=== PATIENT | female | born 1990 | race Two or more races ===

== ENCOUNTER 2023-10-01 21:05 | Emergency (ER) | payer MEDICARE ==
[~2023-10-01] VITALS: Ht 167.6 cm; Wt 225.0 kg
[2023-10-01 21:10] VITALS: TEMP 98.5
[2023-10-01] MEDS: normal saline 1000ML IV soln IVB ONE (23:05)
[2023-10-01] MEDS: proCHLORperazine 10 MG/2 ml inj IV PRN (23:05)
[2023-10-01 23:20] VITALS: BP 113/69; PULSE 118; RESP 20; O2SAT 99
== END 2023-10-01 23:52 | disposition home or self-care (01) ==
LOC: ER 21:06
DX: G40.802 Other epilepsy, not intractable, without status epilepticus (principal); R11.2 Nausea with vomiting, unspecified
CPT/HCPCS: 82948; 96361; 96374; 99285; J0780; J7030

== ENCOUNTER 2024-04-06 11:39 | Emergency (ER) | payer MEDICARE, MEDICAID ==
[~2024-04-06] VITALS: Ht 167.6 cm; Wt 110.0 kg
[~2024-04-06 11:39] MED LIST: ALBU18HF2 PO; BLOO1EAC70 MC; CLON0.1T2 PO; INSU100I61 SUBCUT; LANC-854 TOP; LANTUS SQ; LORA10TA7 PO; METO-292 PO; ONDA-103 PO; ONDA-104 PO; ONDA-243 PO; PANT20TA18 PO; PROC-8 PO; SUCR1TAB PO
[2024-04-06 12:50] LABS: BILIRUBIN,URINE NEGATIVE (Neg); CLARITY,URINE CLEAR (Clear); COLOR,URINE YELLOW (Yellow); GLUCOSE, URINE >=1000 mg/dl (Neg); KETONES,URINE NEGATIVE (Neg); LEUKOCYTE ESTERASE ,URINE NEGATIVE (Neg); NITRITES, URINE NEGATIVE (Neg); OCCULT BLOOD,URINE NEGATIVE (Neg); PH,URINE 5.5 (4.8-8.0); PROTEIN,URINE NEGATIVE (Neg); UROBILINOGEN,URINE 0.2 E.U/dL (0.2-1.0)
[2024-04-06 12:56] LABS: UA COLLECTION TYPE CLN CATCH MIDSTREAM
[2024-04-06 12:58] LABS: BACTERIA,URINE NONE SEEN /HPF (Neg); MUCUS STRANDS MODERATE /LPF (Neg); RBC,URINE NONE SEEN /HPF (0-2); SQUAMOUS EPITHELIAL CELL,UR FEW /LPF (FEW); WBC,URINE 0-4 /HPF (0-4)
[2024-04-06 13:03] LABS: URINE HCG NEGATIVE (NEG)
[2024-04-06] MEDS: ondansetron 4mg rapidly disintigrating tab PO ONE (13:30)
[2024-04-06] MEDS: ketorolac trometh 30MG/ML vial 30 MG/ML VIAL IM ONE (13:30)
[2024-04-06 14:32] LABS: EOSINOPHILS # (AUTO) 0.1 X10'3 (0-0.9); HEMATOCRIT 46.2 % (35.0-45.0); HEMOGLOBIN 15.4 g/dl (12.0-16.0); MEAN CORPUSCULAR HEMOGLOBIN 32.8 PG (27.0-31.0); MEAN CORPUSCULAR VOLUME 98.4 FL (78-98); MONOCYTES # (AUTO) 0.4 X10'3 (0-0.9); RED BLOOD COUNT 4.69 X10'6 (4.20-5.60)
[2024-04-06 14:34] LABS: BASOPHILS % (AUTO) 0.4 % (0-1); EOSINOPHILS % (AUTO) 1.4 % (0-6); LYMPHOCYTES # (AUTO) 1.8 X10'3 (1.1-4.8); LYMPHOCYTES % (AUTO) 25.9 % (21-51); MEAN CORPUSCULAR HGB CONC 33.4 g/dL (33.0-36.5); MEAN PLATELET VOLUME 11.4 FL (7.4-10.4); MONOCYTES % (AUTO) 5.7 % (2-12); NEUTROPHILS # (AUTO) 4.6 X10'3 (1.8-7.7); NEUTROPHILS % (AUTO) 66.6 % (42-75); PLATELET COUNT 165 X10'3 (140-440); RED CELL DISTRIBUTION WIDTH 15.4 % (11.5-14.5)
[2024-04-06 14:49] LABS: ALANINE AMINOTRANSFERASE 18 U/L (12-78); ALBUMIN 3.8 G/DL (3.4-5.0); ALBUMIN/GLOBULIN RATIO 0.9 (1.1-1.5); ALKALINE PHOSPHATASE 108 IU/L (46-116); ANION GAP 10 (8-16); ASPARTATE AMINO TRANSFERASE 16 U/L (10-37); BILIRUBIN,TOTAL 0.5 MG/DL (0.1-1.0); BLOOD UREA NITROGEN 19 MG/DL (7-18); BUN/CREATININE RATIO 29.7 (10.0-20.0); CALCIUM 9.3 MG/DL (8.5-10.1); CHLORIDE 103 MMOL/L (99-107); CREATININE 0.64 MG/DL (0.40-0.90); GLUCOSE 290 MG/DL (70-104); LIPASE 32 U/L (16-77); POTASSIUM 3.7 MMOL/L (3.5-5.1); SODIUM 135 MMOL/L (135-145); TOTAL CARBON DIOXIDE 21.9 MMOL/L (24-32); TOTAL PROTEIN 7.9 G/DL (6.4-8.2); eCRCL 117 ML/MIN; eGFR > 90 ML/MIN
[2024-04-06 15:03] LABS: PLATELET ESTIMATE NORMAL
[2024-04-06 15:04] LABS: LARGE PLATELETS FEW
[2024-04-06 15:58] LABS: SYPHILIS SCREENING TEST POC NEGATIVE (Negative)
[2024-04-06 16:03] VITALS: BP 147/96; PULSE 91; RESP 17; TEMP 98; O2SAT 99
[2024-04-09 06:22] LABS: CHLAMYDIA TRACHOMATIS, NAA Negative (Negative)
== END 2024-04-06 16:04 | disposition home or self-care (01) ==
LOC: ER 11:40
DX: R10.2 Pelvic and perineal pain (principal); E11.43 Type 2 diabetes mellitus with diabetic autonomic (poly)neuropathy; Z88.0 Allergy status to penicillin; Z91.040 Latex allergy status; Z79.4 Long term (current) use of insulin; Z79.899 Other long term (current) drug therapy
CPT/HCPCS: 36415; 76856; 80053; 81001; 81025; 83690; 85008; 85025; 87491; 87591; 93976; 96372; 99285; J1885; J7030

== ENCOUNTER 2024-04-23 02:28 | Emergency (ER) | payer MEDICARE, MEDICAID ==
[~2024-04-23] VITALS: Ht 167.6 cm; Wt 110.5 kg
[2024-04-23 03:11] LABS: BASOPHILS % (AUTO) 0.2 % (0-1); EOSINOPHILS % (AUTO) 0.1 % (0-6); HEMATOCRIT 41.6 % (35.0-45.0); HEMOGLOBIN 13.8 g/dl (12.0-16.0); MEAN CORPUSCULAR HEMOGLOBIN 32.5 PG (27.0-31.0); MEAN CORPUSCULAR HGB CONC 33.2 g/dL (33.0-36.5); MEAN CORPUSCULAR VOLUME 97.9 FL (78-98); MONOCYTES # (AUTO) 0.2 X10'3 (0-0.9); MONOCYTES % (AUTO) 1.9 % (2-12); NEUTROPHILS # (AUTO) 8.8 X10'3 (1.8-7.7); NEUTROPHILS % (AUTO) 87.8 % (42-75); PLATELET COUNT 161 X10'3 (140-440); RED BLOOD COUNT 4.25 X10'6 (4.20-5.60); RED CELL DISTRIBUTION WIDTH 14.5 % (11.5-14.5)
[2024-04-23 03:24] LABS: ALANINE AMINOTRANSFERASE 17 U/L (12-78); ALBUMIN 3.7 G/DL (3.4-5.0); ALKALINE PHOSPHATASE 91 IU/L (46-116); ANION GAP 15 (8-16); ASPARTATE AMINO TRANSFERASE 10 U/L (10-37); BILIRUBIN,DIRECT 0.2 MG/DL (0-0.3); BILIRUBIN,TOTAL 0.4 MG/DL (0.1-1.0); BLOOD UREA NITROGEN 13 MG/DL (7-18); CALCIUM 7.8 MG/DL (8.5-10.1); CHLORIDE 106 MMOL/L (99-107); CREATININE 0.42 MG/DL (0.40-0.90); ETHANOL < 10 MG/DL (<10); GLUCOSE 365 MG/DL (70-104); POTASSIUM 3.2 MMOL/L (3.5-5.1); SODIUM 139 MMOL/L (135-145); TOTAL CARBON DIOXIDE 18.4 MMOL/L (24-32); TOTAL PROTEIN 7.4 G/DL (6.4-8.2); eCRCL 178 ML/MIN; eGFR > 90 ML/MIN
[2024-04-23] MEDS: metoclopramide 5 mg/ml inj IV ONE (03:29)
[2024-04-23] MEDS: diphenhydrAMINE 50 mg/ml inj IV ONE (03:34)
[2024-04-23 03:41] LABS: LARGE PLATELETS FEW; PLATELET ESTIMATE NORMAL
[2024-04-23] MEDS ORDERED: Potassium Cl inj 20 MEQ in normal saline 1000ml 990 ML IV ONE (04:35)
[2024-04-23 04:40] LABS: BILIRUBIN,URINE NEGATIVE (Neg); CLARITY,URINE CLEAR (Clear); COLOR,URINE YELLOW (Yellow); GLUCOSE, URINE >=1000 mg/dl (Neg); KETONES,URINE >=80 mg/dl (Neg); LEUKOCYTE ESTERASE ,URINE NEGATIVE (Neg); NITRITES, URINE NEGATIVE (Neg); OCCULT BLOOD,URINE NEGATIVE (Neg); PH,URINE 5.5 (4.8-8.0); PROTEIN,URINE NEGATIVE (Neg); UROBILINOGEN,URINE 0.2 E.U/dL (0.2-1.0)
[2024-04-23 04:42] LABS: URINE AMPHETAMINE SCREEN NEGATIVE (Neg); URINE BARBITUATE SCREEN NEGATIVE (Neg); URINE BENZODIAZEPINES SCREEN NEGATIVE (Neg); URINE CANNABINOID SCREEN POSITIVE (Neg); URINE COCAINE SCREEN POSITIVE (Neg); URINE METHADONE SCREEN NEGATIVE (Neg); URINE OPIATE SCREEN NEGATIVE (Neg); URINE PHENCYCLIDINE SCREEN NEGATIVE (Neg)
[2024-04-23 04:45] LABS: UA COLLECTION TYPE NON-SPECIFIED
[2024-04-23 04:47] LABS: BACTERIA,URINE NONE SEEN /HPF (Neg); RBC,URINE 0-2 /HPF (0-2); SQUAMOUS EPITHELIAL CELL,UR NONE SEEN /LPF (FEW); WBC,URINE NONE SEEN /HPF (0-4)
[2024-04-23 05:14] LABS: MAGNESIUM 1.5 MG/DL (1.5-2.4)
[2024-04-23] MEDS: potassium Cl 20mEq in NS 1,000 ML IV ONE (05:33)
[2024-04-23 06:48] VITALS: BP 153/99; PULSE 98; RESP 19; TEMP 97.8; O2SAT 98
[2024-04-23] MEDS: LORazepam 1 MG tablet PO ONE (07:01)
== END 2024-04-23 07:40 | disposition home or self-care (01) ==
LOC: ER 02:28
DX: R11.2 Nausea with vomiting, unspecified (principal); F19.10 Other psychoactive substance abuse, uncomplicated; E86.0 Dehydration; E11.65 Type 2 diabetes mellitus with hyperglycemia; J45.909 Unspecified asthma, uncomplicated; Z88.0 Allergy status to penicillin; Z79.4 Long term (current) use of insulin; Z91.040 Latex allergy status; Z79.899 Other long term (current) drug therapy
CPT/HCPCS: 36415; 80048; 80076; 80305; 80320; 81001; 83735; 85008; 85025; 93005; 96361; 96374; 96375; 99285; J1200; J2765; J3480

== ENCOUNTER 2024-07-25 10:55 | Emergency (ER) | payer MEDICARE, MEDICAID ==
[~2024-07-25] VITALS: Ht 167.6 cm; Wt 109.4 kg
[~2024-07-25 10:55] MED LIST changes: -BLOO1EAC70 MC; -CLON0.1T2 PO; +INSU100I31 SQ; +INSU100I31 SUBCUT; -INSU100I61 SUBCUT; +INSU100V13; -LANC-854 TOP; -LANTUS SQ; -LORA10TA7 PO; +METF-1203 PO; -METO-292 PO; +METO10TA3 PO; -ONDA-103 PO; -ONDA-104 PO; -ONDA-243 PO; -PANT20TA18 PO; -SUCR1TAB PO
--- NOTE | 2024-07-25 11:39 | Physician Documentation ---
History of Present Illness ~ Chief Complaint: Breast pain Stated Complaint: L BREAST PAIN Time Seen by MD: 14:07 OK to notify your PCP?: Yes Source: patient Mode of Arrival: POV Exam Limitations: no limitations HPI This 34-year-old female presents with bilateral breast pain worse in left breast with cream colored discharge from left nipple. Patient reports last menstrual period 07/01/2024 and no recent we were change in medications including change in hormonal control. Patient reports possible fever at home that though has been taking ibuprofen and ibuprofen regularly. The patient is a type 1 diabetic Tetanus within 5 years?: No Medication Reconciliation Allergies: Coded Allergies: Penicillins (Verified Allergy, Unknown, 07/25/24) latex (Verified Adverse Reaction, Severe, RASH, 07/25/24) Scheduled Insulin Glargine,Hum.rec.anlog (Basaglar Kwikpen U-100), 30 UNITS SQ QAM, (Reported) Insulin Glargine,Hum.rec.anlog (Basaglar Kwikpen U-100), 20 UNIT SUBCUT HS, (Reported) Metformin HCl (Metformin HCl), 1 TAB PO BID, (Reported) Scheduled PRN Albuterol Sulfate (Ventolin Hfa), 2 PUFFS PO Q4H PRN for SOB or wheezing, (Reported) Insulin Aspart (Novolog), 0-60 UNITS DAILY PRN for Per Protocol, (Reported) Metoclopramide Hcl* (Metoclopramide Hcl*), 1 TAB PO Q6H PRN for nausea/vomiting, (Reported) Prochlorperazine Maleate (Compazine), 1 TAB PO Q6H PRN for nausea/vomiting, (Reported) Past Medical History Patient History: Mayernal granmother 49db and fatty liver cirosis,paternal grandmothe,father,aunts diabetes Physical Exam Vital Signs: Temperature: 97.8, Source: Temporal, Heart Rate: 117, Respiratory Rate: 18, BP: 153/109, Pulse Oximetry: 99, Weight: 109.400 Pulse Oximetry Reflects: adequate oxygenation General Appearance: alert, WD/WN, mild distress (The patient was tearful when I evaluated her) General Appearance VITALS: Reviewed and as above. GENERAL: Alert, nontoxic appearing, no apparent distress. RESPIRATORY: No increased work of breathing, no respiratory distress, speaking in full clear sentences Respiratory No accessory muscle use or retractions. Lungs are clear to auscultation all mckeon. Chest Wall/Breast With the Nicholas are in his my female building drafter I inspected the patient was breasts. The left breast had a mass to the medial aspect of the breast above with the nipple. The patient was states this is a chronic mass. It was tender to palpation and firm without fluctuance. No expressible discharge from the nipples. No obvious firmness or deep fluid collection around the nipples. Neither breaths showed erythema overlying the skin or dimpling. There was tenderness to palpation of the upper rest of the right side with no obvious mass, fluctuance or deep fluid collection. No tenderness of the nipple or expressible discharge from the right nipple. Progress Results/Orders Reviewed/noted all lab results: Yes Results/Orders Orders - LUTHER PARKER Culture Blood (07/25/24 14:15) Saline Lock (07/25/24 ) Ct Chest (07/25/24 15:54) Completed Orders - LUTHER PARKER Cbc/Diff (07/25/24 14:15) MG (07/25/24 14:15) Hcg, Ur Ql (07/25/24 14:15) Normal Saline 1000ml (Sodium Chloride 10 (07/25/24 14:15) Procalcitonin (07/25/24 14:15) Lacticsepsis (07/25/24 14:15) CMP (07/25/24 14:15) Acetone, Serum (07/25/24 14:15) Ct Chest (07/25/24 15:54) Hcg Serum Qt (07/25/24 14:15) Morphine 4mg/Ml Inj. (Morphine Inj.) (07/25/24 14:15) Ondansetron Inj. (Zofran 4mg/2ml Vial) (07/25/24 14:15) Iohexol 300mg/Ml 100ml Inj. (Omnipaque-3 (07/25/24 14:53) Ua W/Microscopic, Cult If Ind (07/25/24 15:15) Medications Received in ER Medications (Trade) Dose Ordered Sig/Dav Route PRN Reason Start Time Stop Time Status Last Admin Dose Admin (sodium chloride 1000ml IV soln) 2,000 ml ONCE ONCE IV 07/25/24 14:15 07/25/24 14:18 DC 07/25/24 15:16 2,000 ML (morphine inj.) 4 mg ONCE ONCE IV 07/25/24 14:15 07/25/24 14:18 DC 07/25/24 15:16 4 MG (Zofran 4mg/2ml vial) 4 mg ONCE ONCE IV 07/25/24 14:15 07/25/24 14:18 DC 07/25/24 15:17 4 MG Vital Signs 07/25/24 07/25/24 07/25/24 11:19 15:16 16:19 Temp 97.8 Pulse 117 97 Resp 18 16 16 B/P (MAP) 153/109 127/83 (98) Pulse Ox 99 99 Laboratory Tests Test 07/25/24 14:35 07/25/24 15:15 White Blood Count 7.3 Red Blood Count 4.61 Hemoglobin 14.7 Hematocrit 43.7 Mean Corpuscular Volume 94.9 Mean Corpuscular Hemoglobin 31.9 H Mean Corpuscular Hemoglobin Concent 33.6 Red Cell Distribution Width 14.7 H Platelet Count 168 Mean Platelet Volume 11.7 H Neutrophils (%) (Auto) 72.1 Lymphocytes (%) (Auto) 21.5 Monocytes (%) (Auto) 5.1 Eosinophils (%) (Auto) 0.8 Basophils (%) (Auto) 0.5 Neutrophils # (Auto) 5.3 Lymphocytes # (Auto) 1.6 Monocytes # (Auto) 0.4 Eosinophils # (Auto) 0.1 Basophils # (Auto) 0.0 CBC Comment Platelet Estimate Normal Large Platelets Few Red Blood Cell Morphology Normal Basophilic Stippling Sodium Level 132 L Potassium Level 5.0 Chloride Level 98 L Carbon Dioxide Level 22.9 L Anion Gap 11 Blood Urea Nitrogen 16 Creatinine 0.51 Estimated GFR/1.73 m2 > 90 BUN/Creatinine Ratio 31.4 H Glucose Level 377 H Lactic Acid Level 1.3 Calcium Level 8.9 Magnesium Level 1.8 Total Bilirubin 0.5 Aspartate Amino Transf (AST/SGOT) 25 Alanine Aminotransferase (ALT/SGPT) 21 Alkaline Phosphatase 107 Total Protein 7.4 Albumin 3.5 Globulin 3.9 Albumin/Globulin Ratio 0.9 L Procalcitonin < 0.05 HCG Beta Subunit < 1.0 Chemistry Comments Acetone Level Negative Urine Specimen Description Cln catch midstream Urine Color Yellow Urine Clarity Clear Urine pH 6.0 Urine Specific [place] 1.015 Urine Protein Negative Urine Glucose (UA) >=1000 H Urine Ketones 15 H Urine Occult Blood Negative Urine Nitrite Negative Urine Bilirubin Negative Urine Urobilinogen 0.2 Urine Leukocyte Esterase Negative Urine RBC None seen Urine WBC 0-4 Urine Squamous Epithelial Cells Few Urine Bacteria None seen Urine Culture Indicated Not ind Volume Urine Centrifuged 10 ml Urine HCG, Qualitative Negative Urine Comment Microbiology Date/Time Source Procedure Growth Status 07/25/24 14:35 Blood Hand Left Blood Culture - Preliminary NEGATIVE (LESS THAN 24 HOURS) Resulted EKG/XRAY/CT/US/VASC/MRI CT : Interpreted By: self CT: chest Impression CT scan of the chest with IV contrast interpreted by me: This evaluation was of the breasts mainly. There was no obvious stranding, mass or fluid collection of the CT scan. Lung mckeon were unremarkable. No obvious bony abnormality. Medical Decision Making Findings The CT scan did not show evidence of significant stranding or fluid collection in the breasts. To CBC did not show elevated white count and the procalcitonin and lactic acid were negative. The patient was blood sugar was 377 and she says he has been a DKA however her bicarb though little low was not significantly low and her serum acetone was negative. The patient received 2 L bolus of normal saline and her sugars are now below 300. She states that is she has a sliding scale insulin at home that she can take. At this point there was nothing indicate an infectious etiology and the blood sugars has been corrected. The patient was states overall she feels better after receiving some IV fluids, IV morphine and Zofran. I will send the patient home with a prescription for ibuprofen for a milder breast pain and [place] for stronger pain. I suspect her pain is secondary to fibrocystic breast disease as the patient was currently menstruating states this does happen at times when she menstruates. Follow up with the primary care physician for recheck in the next one or two days and return to the ER for any worsening or concerning symptoms Additional Comments Breast abscess. Fibrocystic breast disease. Mastitis. Departure Disposition: HOME / SELF CARE / HOMELESS Impression: Primary Impression: Hyperglycemia Additional Impression: Breast pain Condition: Stable Discharge Instructions: Breast Tenderness Additional Instructions: As we discussed the imaging which was a CT scan and the blood work did not show signs of an infection. I suspect your breast tenderness is probably secondary to something called fibrocystic breast disease which is typical during me nstruation. Apply warm compresses to the area and I will give you strong ibuprofen for lesser pain and some [place] for stronger pain. Make sure you check his sugars and watch your diet carefully has a blood sugars were high today. Follow up with your primary care physician for recheck in the next couple of days and return to the ER for any worsening or concerning symptoms. Referrals: NO PRIMARY CARE PROVIDER (PCP) Prescriptions Ibuprofen (Ibu) 800 Mg Tablet 1 TAB PO Q8H for Qsre-gv-avgdctsw pain for 7 Days, #21 TAB 0 Refills Prov: LUTHER PARKER 07/25/24 Hydrocodone Bit/Acetaminophen 5/325 MG ([place] 5/325 MG) 5 Mg/325 Mg Tablet 1 TAB PO Q4H PRN for moderate or severe pain, #15 TAB Prov: LUTHER PARKER 07/25/24 Signature Scribe Signature: No scribe Attestation: The note accurately reflects work and decisions made by me.Luther FIGUEROA 07/25/24 17:14 DAMI LORENZP Jul 25, 2024 11:39 LUTHER PARKER Jul 25, 2024 14:19
[2024-07-25 14:49] LABS: EOSINOPHILS # (AUTO) 0.1 X10'3 (0-0.9); EOSINOPHILS % (AUTO) 0.8 % (0-6); HEMATOCRIT 43.7 % (35.0-45.0); HEMOGLOBIN 14.7 g/dl (12.0-16.0); MONOCYTES # (AUTO) 0.4 X10'3 (0-0.9); MONOCYTES % (AUTO) 5.1 % (2-12)
[2024-07-25 14:50] LABS: BASOPHILS % (AUTO) 0.5 % (0-1); LYMPHOCYTES # (AUTO) 1.6 X10'3 (1.1-4.8); LYMPHOCYTES % (AUTO) 21.5 % (21-51); MEAN CORPUSCULAR HEMOGLOBIN 31.9 PG (27.0-31.0); MEAN CORPUSCULAR HGB CONC 33.6 g/dL (33.0-36.5); MEAN CORPUSCULAR VOLUME 94.9 FL (78-98); MEAN PLATELET VOLUME 11.7 FL (7.4-10.4); NEUTROPHILS # (AUTO) 5.3 X10'3 (1.8-7.7); NEUTROPHILS % (AUTO) 72.1 % (42-75); PLATELET COUNT 168 X10'3 (140-440); RED BLOOD COUNT 4.61 X10'6 (4.20-5.60); RED CELL DISTRIBUTION WIDTH 14.7 % (11.5-14.5); WHITE BLOOD COUNT 7.3 X10'3 (4.5-11.0)
[2024-07-25] MEDS ORDERED: iohexol 300mg/ml 100ml inj. ONE (14:53)
[2024-07-25 15:12] LABS: ALANINE AMINOTRANSFERASE 21 U/L (12-78); ALBUMIN 3.5 G/DL (3.4-5.0); ALBUMIN/GLOBULIN RATIO 0.9 (1.1-1.5); ALKALINE PHOSPHATASE 107 IU/L (46-116); ANION GAP 11 (8-16); BILIRUBIN,TOTAL 0.5 MG/DL (0.1-1.0); BLOOD UREA NITROGEN 16 MG/DL (7-18); BUN/CREATININE RATIO 31.4 (10.0-20.0); CALCIUM 8.9 MG/DL (8.5-10.1); CHLORIDE 98 MMOL/L (99-107); CREATININE 0.51 MG/DL (0.40-0.90); GLUCOSE 377 MG/DL (70-104); MAGNESIUM 1.8 MG/DL (1.5-2.4); SODIUM 132 MMOL/L (135-145); TOTAL CARBON DIOXIDE 22.9 MMOL/L (24-32); TOTAL PROTEIN 7.4 G/DL (6.4-8.2); eCRCL 146 ML/MIN; eGFR > 90 ML/MIN
[2024-07-25 15:16] LABS: ASPARTATE AMINO TRANSFERASE 25 U/L (10-37); BETA HCG,QUANTITATIVE < 1.0 mIU/ml
[2024-07-25] MEDS: normal saline 1000ML IV soln IV ONE (15:16)
[2024-07-25] MEDS: morphine 4 MG/ML inj SYRINge IV ONE (15:16)
[2024-07-25] MEDS: ondansetron/PF 4mg/2ml inj IV ONE (15:17)
[2024-07-25 15:38] LABS: LARGE PLATELETS FEW; PLATELET ESTIMATE NORMAL
[2024-07-25 15:42] LABS: URINE HCG NEGATIVE (NEG)
[2024-07-25 15:43] LABS: ACETONE NEGATIVE (NEGATIVE)
[2024-07-25 15:55] LABS: BILIRUBIN,URINE NEGATIVE (Neg); CLARITY,URINE CLEAR (Clear); COLOR,URINE YELLOW (Yellow); GLUCOSE, URINE >=1000 mg/dl (Neg); KETONES,URINE 15 mg/dl (Neg); LEUKOCYTE ESTERASE ,URINE NEGATIVE (Neg); OCCULT BLOOD,URINE NEGATIVE (Neg); PROTEIN,URINE NEGATIVE (Neg); UROBILINOGEN,URINE 0.2 E.U/dL (0.2-1.0)
[2024-07-25 16:07] LABS: NITRITES, URINE NEGATIVE (Neg); UA COLLECTION TYPE CLN CATCH MIDSTREAM
[2024-07-25 16:14] LABS: SQUAMOUS EPITHELIAL CELL,UR FEW /LPF (FEW)
[2024-07-25 16:16] LABS: BACTERIA,URINE NONE SEEN /HPF (Neg); RBC,URINE NONE SEEN /HPF (0-2); WBC,URINE 0-4 /HPF (0-4)
[2024-07-25 16:19] VITALS: PULSE 97
--- NOTE | 2024-07-25 16:24 | RADIOLOGY REPORT ---
Procedure: CT CT CHEST W/ IV CONTRAST Reason for study/Clinical History: Breast pain with a purulent discharge rule out abscess Comparison Study: None available at time of dictation. Exam Date: 07/25/2024 03:43 PM TECHNIQUE: Multidetector CT of the chest was performed from the lung apices to the upper abdomen with out the use of intravenous contract. Axial, coronal and sagittal multiplanar reformats were performed . Radiation Dose Information: CT Dose: CTDI volume is 18.68 mGy. Dose-length product is 736.66 mGy*cm The dose indicators for CT are the volume Computed Tomography (CT) Dose Index (CTDIvol) and the Dose Length Product (DLP), and are measured in units of mGy and mGy-cm, respectively. These indicators are not patient dose, but values generated from the CT scanner acquisition factors. The report includes radiation exposure data for exposures received during this examination. FINDINGS: Lower neck: Normal thyroid. Lungs: No focal consolidation, pleural effusion or pneumothorax. Heart/Vascular Structures: Normal heart size. No pericardial effusion. Lymph Nodes: No adenopathy Pleura: No pleural effusion or significant pneumothorax. Musculoskeletal: No acute osseous abnormality. Soft tissues: Appears to be relatively normal breast tissue overgrowth both breasts. Recommend breast ultrasound of the area of concern. Upper abdomen: Limited portions of the upper abdomen are unremarkable. IMPRESSION: 1. Relatively normal breast tissue by CT over the right and left chest. . Questionable asymmetric femi ast tissue behind the nipple of the left breast. Correlate with side of clinical symptomatology. Sit e of concern was not indicated. 2. No thoracic airspace disease or pleural effusions 3. No chest wall abnormalities visualized. Radiation optimization: All CT scans at this facility use at least one of these dose optimization marco a hniques: automated exposure control mA and/or kV adjustment per patient size (includes targeted exam s where dose is matched to clinical indication) or iterative reconstruction.
[2024-07-25] MEDS ORDERED: HYDR-3965 PO (17:13)
[2024-07-25] MEDS ORDERED: IBUP-864 PO (17:13)
[2024-07-25 18:28] VITALS: BP 157/96; RESP 18; TEMP 97.8; O2SAT 100
== END 2024-07-25 18:34 | disposition home or self-care (01) ==
LOC: ER 10:56
DX: N64.4 Mastodynia (principal); E10.65 Type 1 diabetes mellitus with hyperglycemia; Z88.0 Allergy status to penicillin
CPT/HCPCS: 36415; 71260; 80053; 81001; 81025; 82009; 82948; 83605; 83735; 84145; 84702; 85008; 85025; 87040; 96361; 96374; 96375; 99285; J2270; J2405; J7030; Q9967; 87077; 87186

== ENCOUNTER 2024-11-03 11:06 | Emergency (ER) | payer MEDICARE, MEDICAID ==
[~2024-11-03] VITALS: Ht 167.6 cm; Wt 111.8 kg
[~2024-11-03 11:06] MED LIST changes: +IBUP-864 PO
[2024-11-03 11:14] VITALS: TEMP 98.6
[2024-11-03] MEDS ORDERED: LIDOcaine 1% W/epiNEPHrine 1:200,000 10ml vial IJ ONE (12:40)
[2024-11-03] MEDS ORDERED: SULF1TAB49 PO (12:43)
--- NOTE | 2024-11-03 12:44 | Physician Documentation ---
History of Present Illness ~ Chief Complaint: Abscess Stated Complaint: ABSCESS Time Seen by MD: 12:38 OK to notify your PCP?: Yes Primary Medical Doctor: DIANE Edwards Source: patient Mode of Arrival: POV Exam Limitations: no limitations HPI 34-year-old female with chief complaint painful swollen red area on her left buttock which started three days ago. She states she has had these before and she feels that this needs to be drained. She has self-diagnosed herself with a abscess. no pre arrival treatment. No fever, chills. Tetanus Within 5 Years: No Medication Reconciliation Allergies: Coded Allergies: Penicillins (Verified Allergy, Unknown, 11/03/24) latex (Verified Adverse Reaction, Severe, RASH, 11/03/24) Scheduled Ibuprofen (Ibu), 1 TAB PO Q8H Insulin Glargine,Hum.rec.anlog (Basaglar Kwikpen U-100), 30 UNITS SQ QAM, (Reported) Insulin Glargine,Hum.rec.anlog (Basaglar Kwikpen U-100), 20 UNIT SUBCUT HS, (Reported) Metformin HCl (Metformin HCl), 1 TAB PO BID, (Reported) Scheduled PRN Albuterol Sulfate (Ventolin Hfa), 2 PUFFS PO Q4H PRN for SOB or wheezing, (Reported) Insulin Aspart (Novolog), 0-60 UNITS DAILY PRN for Per Protocol, (Reported) Metoclopramide Hcl* (Metoclopramide Hcl*), 1 TAB PO Q6H PRN for nausea/vomiting, (Reported) Prochlorperazine Maleate (Compazine), 1 TAB PO Q6H PRN for nausea/vomiting, (Reported) Past Medical History Past Medical History: No Pertinent History Patient History: Mayernal granmother 49db and fatty liver cirosis,paternal grandmothe,father,aunts diabetes Review of Systems All Other Systems at this time: Reviewed and Negative Physical Exam Vital Signs: Temperature: 98.6, Source: Oral, Heart Rate: 130, Respiratory Rate: 16, BP: 182/86, Pulse Oximetry: 98, Weight: 111.800 Oxygen Flow Rate: 0 Physical Exam GENERAL: Alert, no acute distress. HEENT: NCAT, EOMI, PERRL, moist oral mucosa. NECK: Supple, trachea midline. CARDIAC: Regular rate and rhythm, no murmurs, rubs, or gallops. RESPIRATORY: Equal breath sounds, clear to auscultation bilaterally, no respiratory distress. MUSCULOSKELETAL: Normal gait. NEUROLOGICAL: Awake, alert, and oriented x 3. SKIN: Warm/dry, no pallor, no rash. LEFT BUTTOCK ERYTHEMATOUS INDURATED AREA OF SKIN AT LOWER BUTTOCK RIGHT WHERE BUTTOCK MEETS HAMSTRING, AREA OF ERYTHEMA AND INDURATION MEASURE ABOUT 5CM IN LENGTH AND 3CM IN WIDTH. PSYCH: Alert and appropriate. Affect congruent with mood. Speech is clear. Good eye contact. Procedures I & D Procedure : Site: LEFT BUTTOCK Anesthesia: Lidocaine w/ Epi Volume Anesthetic (mls): 10 Blade Size: 11 Incision: pus drained, blood drained Tolerated Procedure Well?: yes, no complications Progress Results/Orders Results/Orders Orders - HERB HODGE Cult (Aer) Routine C&S+Gram St (11/03/24 12:38) [place]ido 1% W/Epi 1:200,000 Vial (11/03/24 12:40) Laceration/I&D Tray Set Up (11/03/24 12:38) Vital Signs 11/03/24 11/03/24 11:14 11:47 Temp 98.6 Pulse 130 Resp 16 B/P (MAP) 182/86 Pulse Ox 98 O2 Flow Rate 0 Medical Decision Making Differential Dx:Considerations: Include: Abscess, Bacteremia, Cellulitis, Erysipelas, Felon, Gas gangrene, Hidrademitis suppurativa, Impetigo, Lymphangitis, Osteromyelitis, Paronychia, Septicemia Departure Time of Disposition: 12:41 Disposition: 01 HOME / SELF CARE / HOMELESS Impression: Primary Impression: Abscess Condition: Stable Discharge Instructions: Skin Abscess, [id number] Additional Instructions: START ANTIBIOTICS WARM COMPRESSES TO AREA HAVE RECHECKED IN 72HOURS BY YOUR PCP OR YOU CAN RETURN TO ER FOR RE-EVALUATION Referrals: NO PRIMARY CARE PROVIDER (PCP) Prescriptions Sulfamethoxazole/Trimethoprim (Bactrim Ds Tablet) 800 Mg-160 Mg Tablet 1 TAB PO Q12H for 10 Days, #20 TAB Prov: HERB HODGE 11/03/24 Education Educated: Patient Educated regarding: diagnosis, treatment, need for follow up Signature Scribe Signature: X Attestation: HERB RICO Nov 03, 2024 12:44
[2024-11-03 13:40] VITALS: BP 132/102; PULSE 98; RESP 16; O2SAT 98
[2024-11-03] MEDS: LIDOcaine 1% W/epiNEPHrine 1:100,000 20ml vial SQ ONE (14:06)
== END 2024-11-03 14:12 | disposition home or self-care (01) ==
LOC: ER 11:06
DX: L02.31 Cutaneous abscess of buttock (principal); Z88.0 Allergy status to penicillin; Z91.040 Latex allergy status; Z79.899 Other long term (current) drug therapy
CPT/HCPCS: 10060; 87070; 99283; A6212; A6407; Z7610

== ENCOUNTER 2025-03-12 08:42 | Emergency (ER) | payer MEDICARE, MEDICAID ==
[~2025-03-12] VITALS: Ht 167.6 cm; Wt 115.3 kg
[2025-03-12 08:53] VITALS: BP 139/89; PULSE 104; RESP 18; TEMP 97.8; O2SAT 99
--- NOTE | 2025-03-12 09:39 | RADIOLOGY REPORT ---
PROCEDURE: DI KNEE, COMP 4 VW MIN 03/12/2025 09:07 AM TECHNIQUE: DI KNEE, COMP 4 VW MIN INDICATION: KNEE PAIN COMPARISON: None FINDINGS: Bones: No acute fracture or dislocation. Joint spaces are maintained. Soft tissues: Unremarkable. No radiopaque foreign body. IMPRESSION: 1. No acute osseous abnormality.
--- NOTE | 2025-03-12 11:51 | Physician Documentation ---
History of Present Illness ~ Chief Complaint: Knee Pain Stated Complaint: R KNEE PAIN Time Seen by MD: 11:44 Primary Medical Doctor: DIANE Edwards [facility] This is a 34-year-old female who presents with right knee pain after a slip and fall last night which she twisted her knee, patient reports pain is worse on her in her knee though is able to walk and bear weight. Patient reports no other injuries and no other acute symptoms or concerns. Tetanus witin 5 years: No Medication Reconciliation Allergies: Coded Allergies: Penicillins (Verified Allergy, Unknown, 11/03/24) latex (Verified Adverse Reaction, Severe, RASH, 11/03/24) Scheduled Ibuprofen (Ibu), 1 TAB PO Q8H Ibuprofen (Ibuprofen), 1 TAB PO Q8H Insulin Glargine,Hum.rec.anlog (Basaglar Kwikpen U-100), 30 UNITS SQ QAM, (Reported) Insulin Glargine,Hum.rec.anlog (Basaglar Kwikpen U-100), 20 UNIT SUBCUT HS, (Reported) Metformin HCl (Metformin HCl), 1 TAB PO BID, (Reported) Scheduled PRN Albuterol Sulfate (Ventolin Hfa), 2 PUFFS PO Q4H PRN for SOB or wheezing, (Reported) Insulin Aspart (Novolog), 0-60 UNITS DAILY PRN for Per Protocol, (Reported) Metoclopramide Hcl* (Metoclopramide Hcl*), 1 TAB PO Q6H PRN for nausea/vomiting, (Reported) Prochlorperazine Maleate (Compazine), 1 TAB PO Q6H PRN for nausea/vomiting, (Reported) Past Medical History Past Medical History: No Pertinent History Patient History: Mayernal granmother 49db and fatty liver cirosis,paternal grandmothe,father,aunts diabetes Review of Systems ROS As stated above in the HPI, otherwise all systems are reviewed and negative. Physical Exam Vital Signs: Temperature: 97.8, Source: Temporal, Heart Rate: 104, Respiratory Rate: 18, BP: 139/89, Pulse Oximetry: 99, Weight: 115.300 Oxygen Flow Rate: 0 Physical Exam VITALS: Reviewed and as above. GENERAL: Alert, nontoxic appearing, no apparent distress. RESPIRATORY: No increased work of breathing, no respiratory distress, speaking in full clear sentences CV: Brisk capillary refill to right lower extremity MUSCULOSKELETAL: Right medial knee had joint online services manager to palpation otherwise nontender to palpation, right knee ROM intact though pain elicited with active ROM, right knee not swollen as compared to left knee SKIN: No ecchymosis or erythema to knee NEURO: Sensation intact to right leg Progress Results/Orders Results/Orders Orders - DAMI LORENZ Ortho Orders (03/12/25 11:45) Completed Orders - DAMI LORENZ TOP SPOTTER Ibuprofen Tablet (Motrin Tablet) (03/12/25 11:55) Vital Signs 03/12/25 08:53 Temp 97.8 Pulse 104 Resp 18 B/P (MAP) 139/89 Pulse Ox 99 O2 Flow Rate 0 EKG/XRAY/CT/US/VASC/MRI Bone/Soft Tissue X-Ray (Ext.) : Additional Comment Exam: KNEE, COMP 4 VW MIN PROCEDURE: DI KNEE, COMP 4 VW MIN 03/12/2025 09:07 AM TECHNIQUE: DI KNEE, COMP 4 VW MIN INDICATION: KNEE PAIN COMPARISON: None FINDINGS: Bones: No acute fracture or dislocation. Joint spaces are maintained. Soft tissues: Unremarkable. No radiopaque foreign body. IMPRESSION: 1. No acute osseous abnormality. Electronically Signed by:GUILLERMINA GALLEGOS MD Date & Time: 03/12/25936 Dictated by: GUILLERMINA GALLEGOS MD Dictation date and time: 03/12/25 09 I have reviewed and agree with the radiology report. I have reviewed and interpreted the imaging as: No fracture or dislocation Medical Decision Making Additional information obtaine: N/A Findings This 34-year-old female presented with right medial knee pain after a slip and fall, no other injuries reported or appreciated on physical exam, it was reassuring patient was able to walk and bear weight, imaging did not demonstrate evidence of fracture or dislocation. Additionally reassuring leg is neurovascularly intact, treatment plan with rest, ice, compression, and elevation. Patient is otherwise well-appearing and appropriate for outpatient follow up. General Diff Dx:Considerations: Include: Abrasion, Contusion, Fracture, Hematoma, Laceration, Neurovascular injury, Open fracture, Sprain Knee Diff Dx:Considerations: Include: Abrasion, Arthritis, Contusion, DJD, Fracture-femur, Fracture-fibula, Fracture-patella, Fracture-tibia, Gout, Hematoma, Laceration, Meniscus injury, Neurovascular injury, Septic, Sprain Ankle Diff Dx:Considerations: Unlikely: Abrasion, Arthritis, Contusion, DJD, Fracture-metatarsal, Fracture-fibula, Fracture-tarsal, Fracture-tibia, Gout, Hematoma, Laceration, Malunion, Neurovascular injury, Nonunion, Open fracture, Osteomyelitis, Rheumatoid arthritis, Sprain, Septic, Ulcer, Other Foot Diff Dx:Considerations: Unlikely: Abrasion, Arthritis, Cellulitis, Co ntusion, Dislocation, DJD, Fracture-metatarsal, Fracture-phalynx, Fracture- tarsal, Gout, Hematoma, Ingrown toenail, Laceration, Malunion, Neurovascular injury, Open fracture, Paronychia, Puncture, Rheumatoid, Sprain, Septic, Subungual hematoma, Ulcer, Other Toe Diff Dx:Considerations: Unlikely: Abrasion, Cellulitis, Contusion, Dislocation, Felon, Fracture, Hematoma, Laceration, Neurovascular injury, Open fracture, Paronychia, Subungual hematoma, Other Departure Time of Disposition: 11:50 Disposition: 01 HOME / SELF CARE / HOMELESS Impression: Primary Impression: Knee pain Qualified Codes: M25.561 - Pain in right knee Condition: Improved Discharge Instructions: Acute Knee Pain, Adult, RICE Therapy for Routine Care of Injuries Additional Instructions: Please use the provided crutches rest your knee, please see the attached home care instructions. Please follow up with your primary care provider as you may need repeat imaging especially if this pain continues for more than one-week. Please use the prescribed high-dose ibuprofen needed for pain, you may combine this medication with [id number] Tylenol as directed by [id number] packaging. Please follow up with your primary care provider in the next few days. Please return to the emergency department for any new or worsening concerning symptoms but not limited to worsening knee pain. Referrals: NO PRIMARY CARE PROVIDER (PCP) Prescriptions Ibuprofen (Ibuprofen) 800 Mg Tablet 1 TAB PO Q8H for pain for 10 Days, #30 TAB 0 Refills Prov: DAMI LORENZ 03/12/25 Education Educated: Patient Educated regarding: diagnosis, treatment, prognosis, need for follow up Signature Scribe Signature: No scribe Attestation: The note accurately reflects work and decisions made by me.BARBARA Justin 03/13/25 09:02 DAMI LORENZP Mar 12, 2025 11:51
[2025-03-12] MEDS ORDERED: IBUP-1986 PO (11:52)
[2025-03-12] MEDS: ibuprofen tablet 400 MG TABLET PO ONE (11:58)
== END 2025-03-12 12:08 | disposition home or self-care (01) ==
LOC: ER 08:42
DX: M25.561 Pain in right knee (principal); Z88.0 Allergy status to penicillin; Z91.040 Latex allergy status; Z79.899 Other long term (current) drug therapy; Z79.4 Long term (current) use of insulin; X50.1XXA Overexertion from prolonged static or awkward postures, initial encounter; Y93.89 Activity, other specified; Y92.89 Other specified places as the place of occurrence of the external cause; Y99.8 Other external cause status
CPT/HCPCS: 73564; 99283; A6449